=== PATIENT | female | born 1985 | race Caucasian/White ===

== ENCOUNTER 2016-08-09 10:44 | Emergency (ER) | payer OTHER ==
[2016-08-09 10:48] VITALS: BP 148/61; PULSE 95; TEMP 98.4
[2016-08-09 11:23] VITALS: RESP 18
--- NOTE | 2016-08-09 11:37 | XR ---
EXAMINATION TYPE: XR chest 2V DATE OF EXAM: 08/09/2016 11:23 AM COMPARISON: Chest x-ray February 11, 2013. HISTORY: Cough and congestion for a few days. TECHNIQUE: Frontal and lateral views of the chest are obtained. FINDINGS: There is no focal air space opacity, pleural effusion, or pneumothorax seen. The cardiac silhouette size is within normal limits. The osseous structures are intact. IMPRESSION: No acute cardiopulmonary process.
--- NOTE | 2016-08-09 11:43 | ED ---
URI HPI - General Chief Complaint: Upper Respiratory Infection Stated Complaint: Sore throat Time Seen by Provider: 08/09/16 10:56 Source: patient, RN notes reviewed Mode of arrival: ambulatory Limitations: no limitations - History of Present Illness Initial Comments: 31-year-old female presents emergency Department chief complaint upper respiratory cold like symptoms for 4 days. Patient states symptoms progressively getting worse. Patient states she has productive cough. Patient states she's just motor, cough medication with no relief. Patient had a runny nose mild sore throat. Denies any difficulty swallowing. Denies fever, chills. Denies sick contacts. Patient states she does have some ear pressure. Patient has no headache no dizziness. Denies any nausea vomiting diarrhea constipation. - Related Data Home Medications Medication Instructions Recorded Confirmed Naproxen Sodium [Aleve] 440 mg PO BID PRN 08/09/16 08/09/16 Previous Rx's Medication Instructions Recorded Promethaz-Cod 6.25-10 mg/5 ml 5 ml PO Q6HR PRN #120 ml 08/09/16 [Phenergan with Codeine] methylPREDNISolone [Medrol Dose 4 mg PO DIRECTED #1 pack 08/09/16 Pack] Allergies Allergy/AdvReac Type Severity Reaction Status Date / Time No Known Allergies Allergy Verified 08/09/16 10:54 Review of Systems ROS Statement: Those systems with pertinent positive or pertinent negative responses have been documented in the HPI. ROS Other: All systems not noted in ROS Statement are negative. Past Medical History Past Medical History: No Reported History History of Any Multi-Drug Resistant Organisms: None Reported Past Surgical History: No Surgical Hx Reported Past Psychological History: No Psychological Hx Reported Smoking Status: Current every day smoker Past Alcohol Use History: None Reported Past Drug Use History: None Reported General Exam Limitations: no limitations General appearance: alert, in no apparent distress Head exam: Present: atraumatic, normocephalic, normal inspection Eye exam: Present: normal appearance, PERRL, EOMI. Absent: scleral icterus, conjunctival injection, periorbital swelling ENT exam: Present: normal exam, normal oropharynx, mucous membranes moist, TM's normal bilaterally, normal external ear exam Neck exam: Present: normal inspection, full ROM. Absent: tenderness, meningismus, lymphadenopathy Respiratory exam: Present: wheezes (Faint). Absent: normal lung sounds bilaterally, respiratory distress, rales, rhonchi, stridor Cardiovascular Exam: Present: regular rate, normal rhythm, normal heart sounds. Absent: systolic murmur, diastolic murmur, rubs, gallop, clicks Neurological exam: Present: alert, oriented X3, CN II-XII intact Course Vital Signs 08/09/16 08/09/16 10:46 11:23 Temperature 98.4 F Pulse Rate 95 Respiratory 20 18 Rate Blood Pressure 148/61 O2 Sat by Pulse 98 Oximetry Medical Decision Making - Medical Decision Making 31-year-old female presents emergency Department chief complaint cough and cold like symptoms. Patient appears to have upper respiratory infection, bronchitis. Patient be given prednisone at this time and cough syrup. Return parameters were discussed. Disposition Clinical Impression: Bronchitis, Upper respiratory infection Disposition: HOME SELF-CARE Condition: Stable Instructions: Upper Respiratory Infection (ED) Additional Instructions: Please return to the Emergency Department if symptoms worsen or any other concerns. Prescriptions: Promethaz-Cod 6.25-10 mg/5 ml [Phenergan with Codeine] 5 ml PO Q6HR PRN #120 ml PRN Reason: Cough methylPREDNISolone [Medrol Dose Pack] 4 mg PO DIRECTED #1 pack Time of Disposition: 11:43
== END 2016-08-09 12:33 | disposition home or self-care (01) ==
LOC: EC 10:44
DX: J40 Bronchitis, not specified as acute or chronic (principal); J06.9 Acute upper respiratory infection, unspecified; F17.200 Nicotine dependence, unspecified, uncomplicated
CPT/HCPCS: 71020; 99283

== ENCOUNTER 2016-12-30 18:36 | Emergency (ER) | payer OTHER ==
[2016-12-30 18:50] VITALS: TEMP 98.1
[2016-12-30] MEDS ORDERED: SODIUM CHLORIDE 0.9% 1,000 ML IV STA (18:59)
--- NOTE | 2016-12-30 19:03 | ED ---
Chest Pain HPI - General Chief Complaint: Chest Pain Stated Complaint: chest pain/headache Time Seen by Provider: 12/30/16 18:54 Source: patient, RN notes reviewed, old records reviewed Mode of arrival: wheelchair Limitations: no limitations - History of Present Illness Initial Comments: Patient is a 31-year-old female presenting to the complaint of left-sided sharp chest pain for the past 3 days as well as a posterior headache. Patient reports that she's had this constant pain. Denies any aggravating factors. Patient states that seems to radiate into her left armpit. Denies any numbness or tingling. Denies any shortness of breath or diaphoresis. She does have a family history of heart disease and is a smoker. Patient states that she's had no fever or chills. Patient denies any recent fever, chills, shortness of breath , nausea vomiting, numbness or tingling, dysuria or hematuria, constipation or diarrhea, headaches or visual changes, or any other current symptoms - Related Data Home Medications Medication Instructions Recorded Confirmed Phentermine HCl [Adipex-P] 37.5 mg PO QAM 12/30/16 12/30/16 traZODone HCL 200 mg PO HS 12/30/16 12/30/16 Previous Rx's Medication Instructions Recorded Ibuprofen [Motrin] 600 mg PO Q8HR PRN #20 tab 12/30/16 Allergies Allergy/AdvReac Type Severity Reaction Status Date / Time No Known Allergies Allergy Verified 12/30/16 18:54 Review of Systems ROS Statement: Those systems with pertinent positive or pertinent negative responses have been documented in the HPI. ROS Other: All systems not noted in ROS Statement are negative. EKG Findings - EKG Comments: EKG Findings:: EKG shows normal sinus rhythm. Ventricular rate of 85 bpm. MO interval 150 ms. QRS duration 90 ms. QT QTc is 384/456 ms. No evidence of ST elevation or T-wave inversions. No evidence of atrial or ventricular arrhythmias. Past Medical History Past Medical History: No Reported History History of Any Multi-Drug Resistant Organisms: None Reported Past Surgical History: No Surgical Hx Reported Past Psychological History: No Psychological Hx Reported Smoking Status: Current every day smoker Past Alcohol Use History: None Reported Past Drug Use History: None Reported General Exam - General Exam Comments Initial Comments: Well-appearing 31-year-old female. No distress. Limitations: no limitations General appearance: alert, in no apparent distress Head exam: Present: atraumatic, normocephalic, normal inspection Eye exam: Present: normal appearance, PERRL, EOMI. Absent: scleral icterus, conjunctival injection, periorbital swelling ENT exam: Present: normal exam, mucous membranes moist Neck exam: Present: normal inspection. Absent: tenderness, meningismus, lymphadenopathy Respiratory exam: Present: normal lung sounds bilaterally. Absent: respiratory distress, wheezes, rales, rhonchi, stridor Cardiovascular Exam: Present: regular rate, normal rhythm, normal heart sounds, other (patient is tender to palpation over ). Absent: systolic murmur, diastolic murmur, rubs, gallop, clicks GI/Abdominal exam: Present: soft, tenderness (Left upper quadrant tenderness), normal bowel sounds. Absent: distended, guarding, rebound, rigid Extremities exam: Present: normal inspection, full ROM, normal capillary refill. Absent: tenderness, pedal edema, joint swelling, calf tenderness Back exam: Present: normal inspection Neurological exam: Present: alert, oriented X3, CN II-XII intact Psychiatric exam: Present: normal affect, normal mood Skin exam: Present: warm, dry, intact, normal color. Absent: rash Course Vital Signs 12/30/16 12/30/16 12/30/16 18:48 19:04 19:13 Temperature 98.1 F Pulse Rate 88 79 74 Respiratory 20 16 16 Rate Blood Pressure 109/66 115/75 115/75 O2 Sat by Pulse 96 95 98 Oximetry 12/30/16 19:32 Temperature Pulse Rate 62 Respiratory 18 Rate Blood Pressure 113/61 O2 Sat by Pulse 99 Oximetry Chest Pain MDM - MDM 31-year-old female chief complaint of 3 days of left-sided chest pain radiating to her armpit and left upper quadrant. Patient EKG was reviewed to be normal. All lab work is negative. Chest x-ray shows no acute cardiopulmonary process. pain is reproducible to palpation over the chest wall. Discusses likely a strain or possible costochondritis. Patient will be started on anti-inflammatory medication. Patient agrees to follow-up with the primary care provider. Return parameters were discussed. Disposition Clinical Impression: Costochondritis Disposition: HOME SELF-CARE Condition: Good Instructions: Costochondritis (ED) Additional Instructions: Patient advised to apply cool compresses or warm heating pads over the area that is tender. Take anti-inflammatory medication. Follow-up with your primary care provider. Return if there is any worsening signs or symptoms occur. Prescriptions: Ibuprofen [Motrin] 600 mg PO Q8HR PRN #20 tab PRN Reason: Pain Referrals: Jordan Titus MD [Primary Care Provider] - 1-2 days Time of Disposition: 20:29
[2016-12-30 19:27] LABS: Basophils # (A) 0.1 k/uL (0-0.2); Basophils % (A) 1 %; CH 33.6; CHCM 35.7; Eosinophils # (A) 0.4 k/uL (0-0.7); Eosinophils % (A) 4 %; HCT 42.6 % (34.0-46.0); HDW 2.45; Luc # (Auto) 0.14; Luc % (Auto) 2; Lymphocytes # (A) 3.4 k/uL (1.0-4.8); Lymphocytes % (A) 41 %; MCH 33.3 pg (25.0-35.0); MCHC 35.2 g/dL (31.0-37.0); MCV 94.6 fL (80.0-100.0); Mean Platelet Volume 7.1; Monocytes # (A) 0.5 k/uL (0-1.0); Monocytes % (A) 7 %; Neutrophils # (A) 3.8 k/uL (1.3-7.7); Neutrophils % (A) 46 %; RDW 13.5 % (11.5-15.5); WBC 8.2 k/uL (3.8-10.6); WBC (Perox) 7.45
--- NOTE | 2016-12-30 19:33 | XR ---
EXAMINATION TYPE: XR chest 2V DATE OF EXAM: 12/30/2016 COMPARISON: August 09, 2016 HISTORY: Chest pain TECHNIQUE: Frontal and lateral views of the chest are obtained. FINDINGS: There is no focal air space opacity. No evidence for pneumothorax. No pleural effusion. The cardiac silhouette size is within normal limits. The osseous structures are grossly intact. IMPRESSION: 1. No acute cardiopulmonary process.
[2016-12-30 19:39] LABS: ALT 21 U/L (9-52); AST 18 U/L (14-36); Alkaline Phosphatase 88 U/L (38-126); Amylase <30 U/L (30-110); Anion Gap 12 mmol/L; Blood Urea Nitrogen 12 mg/dL (7-17); Calcium 9.1 mg/dL (8.4-10.2); Carbon Dioxide 20 mmol/L (22-30); Chloride 107 mmol/L (98-107); Glucose 119 mg/dL (74-99); INR 0.9 (<1.1); Non-African American GFR(MDRD) >60 (>60 ml/min/1.73 sqM); Potassium 4.2 mmol/L (3.5-5.1); Prothrombin Time 9.6 sec (9.0-12.0); Sodium 139 mmol/L (137-145); Total Bilirubin 0.4 mg/dL (0.2-1.3); Total Protein 6.7 g/dL (6.3-8.2)
[2016-12-30 19:45] LABS: Creatine Kinase 101 U/L (30-135)
[2016-12-30 19:48] VITALS: BP 113/61; PULSE 62; RESP 18
[2016-12-30 19:57] LABS: Creatine Kinase MB 0.3 ng/mL (0.0-2.4); Troponin I <0.012 ng/mL (0.000-0.034)
[2016-12-30] MEDS ORDERED: KETOROLAC 30 MG/ML 1 ML VIAL IVP STA (20:05)
== END 2016-12-30 20:40 | disposition home or self-care (01) ==
LOC: EC 18:36
DX: M94.0 Chondrocostal junction syndrome [Tietze] (principal); F17.200 Nicotine dependence, unspecified, uncomplicated; Z79.899 Other long term (current) drug therapy
CPT/HCPCS: 99285; 96374; 96361; 36415; 93005; 85379; 80053; 82150; 82550; 82553; 83690; 83735; 84484; 85025; 85610; 85730; 71020; J1885

== ENCOUNTER 2017-04-04 19:54 | Emergency (ER) | payer OTHER ==
[2017-04-04 20:07] VITALS: RESP 16
[2017-04-04] MEDS ORDERED: METOCLOPRAMIDE 5 MG/ML 2 ML VIAL IVP STA (20:26)
[2017-04-04] MEDS ORDERED: ACETAMINOPHEN TAB 500 MG TAB PO STA (20:26)
[2017-04-04] MEDS ORDERED: SODIUM CHLORIDE 0.9% 1,000 ML IV STA (20:26)
[2017-04-04] MEDS ORDERED: diphenhydrAMINE 50 MG/ML 1 ML VIAL IVP STA (20:26)
[2017-04-04] MEDS ORDERED: KETOROLAC 30 MG/ML 1 ML VIAL IVP STA (20:26)
[2017-04-04] MEDS ORDERED: ORPHENADRINE 30 MG/ML 2 ML VIAL IVP STA (20:27)
--- NOTE | 2017-04-04 20:37 | ED ---
Headache HPI - General Chief Complaint: Headache Stated Complaint: Headache Time Seen by Provider: 04/04/17 20:09 Source: RN notes reviewed, old records reviewed Mode of arrival: ambulatory Limitations: no limitations - History of Present Illness Initial Comments: 31-year-old female presents emergency room chief complaint of migraine-like headache for the past 3 days. Patient she's had history of migraines before. Patient states that she's had no other symptoms related to that including vision changes or neck pain. She reports that she had no cough sore throat or upper respiratory congestion. Patient reports that her headache is made her feel nauseated. She states that she has not had any vomiting episodes however. Patient states that she's had a history of migraines but has not had one in many months. - Related Data Home Medications Medication Instructions Recorded Confirmed Phentermine HCl [Adipex-P] 37.5 mg PO DAILY 12/30/16 04/04/17 traZODone HCL 200 mg PO HS 12/30/16 04/04/17 Ibuprofen [Motrin] 800 mg PO TID 04/04/17 04/04/17 Previous Rx's Medication Instructions Recorded Ondansetron Odt [Zofran Odt] 4 mg PO Q8HR PRN #12 tab 04/04/17 Allergies Allergy/AdvReac Type Severity Reaction Status Date / Time No Known Allergies Allergy Verified 04/04/17 20:30 Review of Systems ROS Statement: Those systems with pertinent positive or pertinent negative responses have been documented in the HPI. ROS Other: All systems not noted in ROS Statement are negative. Past Medical History Past Medical History: No Reported History History of Any Multi-Drug Resistant Organisms: None Reported Past Surgical History: No Surgical Hx Reported Past Psychological History: No Psychological Hx Reported Smoking Status: Current every day smoker Past Alcohol Use History: None Reported Past Drug Use History: None Reported General Exam - General Exam Comments Initial Comments: Is a pleasant 31-year-old female. No acute distress. Limitations: no limitations General appearance: alert, in no apparent distress Head exam: Present: atraumatic, normocephalic, normal inspection Eye exam: Present: normal appearance, PERRL, EOMI. Absent: scleral icterus, conjunctival injection, periorbital swelling ENT exam: Present: normal exam, mucous membranes moist Neck exam: Present: normal inspection. Absent: tenderness, meningismus, lymphadenopathy Respiratory exam: Present: normal lung sounds bilaterally. Absent: respiratory distress, wheezes, rales, rhonchi, stridor Cardiovascular Exam: Present: regular rate, normal rhythm, normal heart sounds. Absent: systolic murmur, diastolic murmur, rubs, gallop, clicks GI/Abdominal exam: Present: soft, normal bowel sounds. Absent: distended, guarding, rebound, rigid Extremities exam: Present: normal inspection, full ROM, normal capillary refill. Absent: tenderness, pedal edema, joint swelling, calf tenderness Back exam: Present: normal inspection, full ROM, CVA tenderness (R), CVA tenderness (L), muscle spasm Neurological exam: Present: alert, oriented X3, CN II-XII intact Psychiatric exam: Present: normal affect, normal mood Skin exam: Present: warm, dry, intact, normal color. Absent: rash Course Vital Signs 04/04/17 20:04 Temperature 98.7 F Pulse Rate 88 Respiratory 16 Rate Blood Pressure 137/78 O2 Sat by Pulse 98 Oximetry Medical Decision Making - Medical Decision Making Is a 31-year-old female complaining of migraine-like headache. His been going on for 3 days. Patient is neurologically intact. No other symptoms. She did complain of some mild nausea and abdominal discomfort. No tenderness on exam. Patient will receive CBC and BMP. Both are within normal. Urinalysis negative for any signs of infection. Patient was reevaluated after receiving Reglan Toradol Benadryl and Norflex her headache is subsided. She reports is 0 out of 10. At this time I'll discharge the patient with follow-up with her primary care provider. Discussed I will give the patient perception for nausea medicine for further episodes of nausea or migraine. Patient agrees to treatment plan will comply. Return parameters were discussed. - Lab Data Result diagrams: 04/04/17 21:05 04/04/17 21:05 Lab Results 04/04/17 04/04/17 04/04/17 Range/Units 21:05 21:05 21:05 WBC 8.3 (3.8-10.6) k/uL RBC 4.42 (3.80-5.40) m/uL Hgb 14.9 (11.4-16.0) gm/dL Hct 44.5 (34.0-46.0) % MCV 100.8 H (80.0-100.0) fL MCH 33.8 (25.0-35.0) pg MCHC 33.5 (31.0-37.0) g/dL RDW 13.2 (11.5-15.5) % Plt Count 321 (150-450) k/uL Neutrophils % 50 % Lymphocytes % 35 % Monocytes % 7 % Eosinophils % 4 % Basophils % 1 % Neutrophils # 4.2 (1.3-7.7) k/uL Lymphocytes # 2.9 (1.0-4.8) k/uL Monocytes # 0.6 (0-1.0) k/uL Eosinophils # 0.4 (0-0.7) k/uL Basophils # 0.1 (0-0.2) k/uL Sodium 139 (137-145) mmol/L Potassium 4.3 (3.5-5.1) mmol/L Chloride 106 (98-107) mmol/L Carbon Dioxide 21 L (22-30) mmol/L Anion Gap 12 mmol/L BUN 16 (7-17) mg/dL Creatinine 1.11 H (0.52-1.04) mg/dL Est GFR (MDRD) Af Amer >60 (>60 ml/min/1.73 sqM) Est GFR (MDRD) Non-Af 57 (>60 ml/min/1.73 sqM) Glucose 65 L (74-99) mg/dL Calcium 9.1 (8.4-10.2) mg/dL Urine Color Light Yellow Urine Appearance Cloudy H (Clear) Urine pH 7.0 (5.0-8.0) Ur Specific Gordon 1.012 (1.001-1.035) Urine Protein Negative (Negative) Urine Glucose (UA) Negative (Negative) Urine Ketones Negative (Negative) Urine Blood Small H (Negative) Urine Nitrite Negative (Negative) Urine Bilirubin Negative (Negative) Urine Urobilinogen <2.0 (<2.0) mg/dL Ur Leukocyte Esterase Negative (Negative) Urine RBC 1 (0-5) /hpf Urine WBC 2 (0-5) /hpf Ur Squamous Epith Cells 13 H (0-4) /hpf Disposition Clinical Impression: Migraine Disposition: HOME SELF-CARE Condition: Good Instructions: Migraine Headache (ED) Additional Instructions: Patient denies rest, increase fluids. Use nausea medicine as needed. Return take Motrin Tylenol for further headaches. Return to emergency department if any alarming signs symptoms occur. Prescriptions: Ondansetron Odt [Zofran Odt] 4 mg PO Q8HR PRN #12 tab PRN Reason: Nausea Referrals: Jordan Titus MD [Primary Care Provider] - 1-2 days Time of Disposition: 21:46
[2017-04-04 21:20] LABS: Basophils # (A) 0.1 k/uL (0-0.2); Basophils % (A) 1 %; CHCM 33.9; Eosinophils # (A) 0.4 k/uL (0-0.7); Eosinophils % (A) 4 %; HCT 44.5 % (34.0-46.0); HDW 2.48; HGB 14.9 gm/dL (11.4-16.0); Luc # (Auto) 0.16; Luc % (Auto) 2; Lymphocytes # (A) 2.9 k/uL (1.0-4.8); Lymphocytes % (A) 35 %; MCH 33.8 pg (25.0-35.0); MCHC 33.5 g/dL (31.0-37.0); MCV 100.8 fL (80.0-100.0); Mean Platelet Volume 6.9; Monocytes # (A) 0.6 k/uL (0-1.0); Monocytes % (A) 7 %; Neutrophils # (A) 4.2 k/uL (1.3-7.7); Neutrophils % (A) 50 %; RBC 4.42 m/uL (3.80-5.40); RDW 13.2 % (11.5-15.5); WBC 8.3 k/uL (3.8-10.6); WBC (Perox) 8.43
[2017-04-04 21:26] LABS: Appearance,Urine Cloudy (Clear); Bilirubin,Urine Negative (Negative); Glucose,Urine (UA) Negative (Negative); Ketones,Urine Negative (Negative); Leukocyte Esterase,Urine Negative (Negative); Nitrite,Urine Negative (Negative); Particle Count 4075; Protein,Urine Negative (Negative); RBC,Urine 1 /hpf (0-5); Specific Gravity,Urine 1.012 (1.001-1.035); Squamous Epithelial Cell,Urine 13 /hpf (0-4); UA Billing (MACRO vs. MICRO) MICRO; Urobilinogen,Urine <2.0 mg/dL (<2.0); WBC,Urine 2 /hpf (0-5)
[2017-04-04 21:28] LABS: Anion Gap 12 mmol/L; Blood Urea Nitrogen 16 mg/dL (7-17); Calcium 9.1 mg/dL (8.4-10.2); Carbon Dioxide 21 mmol/L (22-30); Chloride 106 mmol/L (98-107); Glucose 65 mg/dL (74-99); Non-African American GFR(MDRD) 57 (>60 ml/min/1.73 sqM); Potassium 4.3 mmol/L (3.5-5.1); Sodium 139 mmol/L (137-145)
[2017-04-04 21:58] VITALS: BP 123/68; PULSE 68; TEMP 98
== END 2017-04-04 21:58 | disposition home or self-care (01) ==
LOC: EC 19:54
DX: G43.909 Migraine, unspecified, not intractable, without status migrainosus (principal); F17.200 Nicotine dependence, unspecified, uncomplicated; Z79.1 Long term (current) use of non-steroidal anti-inflammatories (NSAID); Z79.899 Other long term (current) drug therapy
CPT/HCPCS: 99284 ×2; 96374 ×2; 96375 ×4; 96361 ×2; 36415; 80048; 85025; 81001; J1200; J2360; J2765; J1885

== ENCOUNTER 2018-01-14 17:56 | Emergency (ER) | payer OTHER ==
[2018-01-14 18:03] VITALS: BP 105/64; PULSE 87; RESP 16; TEMP 98.1
[2018-01-14] MEDS ORDERED: LIDOCAINE 4% CREAM 5 GM TUBE TOPICAL ONE (18:53)
--- NOTE | 2018-01-14 18:57 | ED ---
General Adult HPI - General Chief complaint: Skin/Abscess/Foreign Body Stated complaint: leg infection Time Seen by Provider: 01/14/18 18:45 Source: patient, RN notes reviewed Mode of arrival: ambulatory Limitations: no limitations - History of Present Illness Initial comments: Patient is a pleasant 32-year-old female presenting to the emergency department with concerns regarding left leg infection. Patient states she cut her leg while shaving 3 days ago. Patient went to her doctor 2 days ago and was started on antibiotics. Patient has been on antibiotics for almost 2 days now. Patient has continued discomfort. Patient states the swelling may be somewhat worse. No fevers. No other area of infection or concern. Patient has not been using antibiotic ointment. Patient has been taking her oral antibiotics. - Related Data Home Medications Medication Instructions Recorded Confirmed Phentermine HCl [Adipex-P] 37.5 mg PO DAILY 12/30/16 04/04/17 traZODone HCL 200 mg PO HS 12/30/16 04/04/17 Ibuprofen [Motrin] 800 mg PO TID 04/04/17 04/04/17 Previous Rx's Medication Instructions Recorded Ondansetron Odt [Zofran Odt] 4 mg PO Q8HR PRN #12 tab 04/04/17 Mupirocin 2% Oint [Bactroban 2% 1 applic TOPICAL TID #30 gm 01/14/18 Oint] Allergies Allergy/AdvReac Type Severity Reaction Status Date / Time No Known Allergies Allergy Verified 01/14/18 18:03 Review of Systems ROS Statement: Those systems with pertinent positive or pertinent negative responses have been documented in the HPI. ROS Other: All systems not noted in ROS Statement are negative. Constitutional: Denies: fever Eyes: Denies: eye pain ENT: Denies: ear pain Respiratory: Denies: cough Cardiovascular: Denies: chest pain Endocrine: Denies: fatigue Gastrointestinal: Denies: abdominal pain Genitourinary: Denies: dysuria Musculoskeletal: Denies: back pain Skin: Reports: rash Past Medical History Past Medical History: No Reported History History of Any Multi-Drug Resistant Organisms: None Reported Past Surgical History: No Surgical Hx Reported Past Psychological History: No Psychological Hx Reported Smoking Status: Current every day smoker Past Alcohol Use History: Occasional Past Drug Use History: Marijuana General Exam Limitations: no limitations General appearance: alert, in no apparent distress Head exam: Present: normocephalic Respiratory exam: Present: normal lung sounds bilaterally Cardiovascular Exam: Present: regular rate, normal rhythm GI/Abdominal exam: Present: soft. Absent: tenderness Extremities exam: Present: other (Left lateral lower leg with deep abrasion approximately 0.4 x 2.5 cm. There is surrounding mild erythema. There is minimal swelling. There is tenderness.). Absent: calf tenderness Neurological exam: Present: alert Psychiatric exam: Present: normal affect, normal mood Skin exam: Present: abrasion Course Vital Signs 01/14/18 17:58 Temperature 98.1 F Pulse Rate 87 Respiratory 16 Rate Blood Pressure 105/64 O2 Sat by Pulse 98 Oximetry Disposition Clinical Impression: Cellulitis of left ankle Disposition: HOME SELF-CARE Condition: Stable Instructions: Cellulitis (ED) Additional Instructions: Continue antibiotics as prescribed. Twice daily wash area thoroughly with soap and water, applying mupirocin ointment, and bandage. Return for fevers, increased redness, increased pain, increased swelling, worsening symptoms or any other concerns. Please follow-up with primary care physician this week for recheck. Prescriptions: Mupirocin 2% Oint [Bactroban 2% Oint] 1 applic TOPICAL TID #30 gm Is patient prescribed a controlled substance at d/c from ED?: No Referrals: Jordan Titus MD [Primary Care Provider] - 1-2 days Time of Disposition: 18:57
[2018-01-14] MEDS ORDERED: MUPIROCIN 2% OINT 22 GM TUBE TOPICAL SCH (19:00)
== END 2018-01-14 19:14 | disposition home or self-care (01) ==
LOC: EC 17:56
DX: L03.116 Cellulitis of left lower limb (principal); S80.812D Abrasion, left lower leg, subsequent encounter; F17.200 Nicotine dependence, unspecified, uncomplicated; Z79.1 Long term (current) use of non-steroidal anti-inflammatories (NSAID); Z79.899 Other long term (current) drug therapy; W26.9XXD Contact with unspecified sharp object(s), subsequent encounter
CPT/HCPCS: 99283

== ENCOUNTER 2019-07-30 19:38 | Emergency (ER) | payer OTHER ==
[2019-07-30] MEDS ORDERED: LIDOCAINE 1% INJ 10MG/ML (20 ML MDV) SQ STA (20:00)
[2019-07-30] MEDS ORDERED: ACETAMINOPHEN TAB 325 MG TAB PO STA (20:00)
--- NOTE | 2019-07-30 20:27 | XR ---
PROCEDURE: XR toes RT - 3V DATE AND TIME: 07/30/2019 8:15 PM CLINICAL INDICATION: PHH; laceration r/o fb TECHNIQUE: Department protocol COMPARISON: None FINDINGS: There is no fracture or malalignment. There is a geographic cluster of multifocal radiopaque foreign bodies each measuring 2-5 mm. Geographic cluster of radiopaque foreign bodies measures 10 mm AP x 8 mm transverse x 4 mm CC, and is located in the soft tissues immediately plantar to the midshaft of the proximal phalanx of the great toe. These are best seen on the lateral view. IMPRESSION: POSITIVE FOR RADIOPAQUE FOREIGN BODIES.
[2019-07-30] MEDS ORDERED: CEPHALEXIN 500 MG CAP PO STA (20:37)
[2019-07-30] MEDS ORDERED: CEPHALEXIN 500MG STARTER PACK 4 CAP BTL PO STA (20:37)
--- NOTE | 2019-07-30 21:57 | XR ---
PROCEDURE: XR toes LT - 3V DATE AND TIME: 07/30/2019 9:49 PM CLINICAL INDICATION: PHH; toe foreign body TECHNIQUE: Department protocol COMPARISON: None FINDINGS: There is redemonstration of the geographic cluster of multifocal radiopaque foreign bodies each measuring 2-5 mm., With the cluster itself measuring approximately 10 mm AP x 8 mm transverse x 4 mm CC and located in the soft tissues immediately plantar to the midshaft of the proximal phalanx o f the great toe. Bones and joints are intact. IMPRESSION: Radiopaque foreign bodies.
--- NOTE | 2019-07-30 22:31 | ED ---
General Adult HPI - General Chief complaint: Wound/Laceration Stated complaint: toe lac Time Seen by Provider: 07/30/19 19:47 Source: patient, RN notes reviewed, old records reviewed Mode of arrival: wheelchair Limitations: no limitations - History of Present Illness Initial comments: 34-year-old female patient no pertinent past medical history presents ED if she complaint laceration to left great toe. Patient was that she was exiting a bathtub today when she stepped on a drinking glass causing a laceration. Denies any other injury. Reports that tetanus is up-to-date. Systemic: Pt denies fatigue, fever/chills, rash. Pt denies weakness, night sweats, weight loss. Neuro: Pt denies headache, visual disturbances, syncope or pre-syncope. HEENT: Pt denies ocular discharge or irritation, otalgia, rhinorrhea, pharyngitis or notable lymphadenopathy. Cardiopulmonary: Pt denies chest pain, SOB, heart palpitations, dyspnea on exertion. Abdominal/GI: Pt denies abdominal pain, n/v/d. : Pt denies dysuria, burning w/ urination, frequency/urgency. Denies new onset urinary or bowel incontinence. MSK: Pt denies myalgia, loss of strength or function in extremities. Neuro: Pt denies new onset weakness, paresthesias. - Related Data Home Medications Medication Instructions Recorded Confirmed Phentermine HCl [Adipex-P] 37.5 mg PO DAILY 12/30/16 01/14/18 traZODone HCL 200 mg PO HS 12/30/16 01/14/18 Ibuprofen [Motrin] 800 mg PO TID 04/04/17 01/14/18 Cephalexin [Keflex] 500 mg PO BID 01/14/18 01/14/18 Sulfamethox-Tmp 800-160Mg [Bactrim 1 tab PO BID 01/14/18 01/14/18 DS 800-160 mg] rOPINIRole HCL [Requip] 1 mg PO HS 01/14/18 01/14/18 Previous Rx's Medication Instructions Recorded Mupirocin 2% Oint [Bactroban 2% 1 applic TOPICAL TID #30 gm 01/14/18 Oint] Cephalexin [Keflex] 500 mg PO Q12HR 7 Days #14 cap 07/30/19 Allergies Allergy/AdvReac Type Severity Reaction Status Date / Time No Known Allergies Allergy Verified 07/30/19 19:43 Review of Systems ROS Statement: Those systems with pertinent positive or pertinent negative responses have been documented in the HPI. ROS Other: All systems not noted in ROS Statement are negative. Past Medical History Past Medical History: No Reported History History of Any Multi-Drug Resistant Organisms: None Reported Past Surgical History: Ear Surgery, Tonsillectomy Past Psychological History: No Psychological Hx Reported Smoking Status: Current every day smoker Past Alcohol Use History: Occasional Past Drug Use History: Marijuana General Exam - General Exam Comments Initial Comments: Constitutional: NAD, AOX3, Pt has pleasant affect. HEENT: NC/AT, trachea midline, neck supple, no lymphadenopathy. Posterior pharynx non erythematous, without exudates. External ears appear normal, without discharge. Mucous membranes moist. Eyes PERRLA, EOM intact. There is no scleral icterus. No pallor noted. Cardiopulmonary: RRR, no murmurs, rubs or gallops, no JVD noted. Lungs CTAB in anterior and posterior wong. No peripheral edema. Abdominal exam: Abdomen soft and non-distended. Abdomen non-tender to palpation in all 4 quadrants. Bowel sounds active in LLQ. No hepatosplenomegaly. No ecchymosis Neuro: CN II-XII grossly intact. No nuchal rigidity. No raccon eyes, no webb sign, no hemotympanum. No cervical spinal tenderness. MSK: 3 cm laceration on plantar aspect of left great toe. Vigorously irrigated with 1 L of normal saline. Loosely approximated with 4 simple interrupted sutures. No posterior calf tenderness bilaterally, homans sign negative bilaterally. Posterior tibialis and radial pulse +2 bilaterally. Sensation intact in upper and lower extremities. Full active ROM in upper and lower extremities, 5/5 stregnth. Limitations: no limitations Course Vital Signs 07/30/19 19:40 Temperature 98.3 F Pulse Rate 113 H Respiratory 20 Rate Blood Pressure 131/81 O2 Sat by Pulse 99 Oximetry Procedures - Laceration Laceration #1 Consent Obtained: verbal consent Indication: laceration Site: foot, other (L great toe ) Size (cm): 3 Description: linear Depth: simple, single layer Anesthetic Used: lidocaine 1% Anesthesia Technique: local infiltration Amount (mls): 4 Pre-repair: wound explored, irrigated extensively, deep structures intact Type of Sutures: nylon Size of Sutures: 5-0 (loosely approximated) Number of Sutures: 4 Technique: simple, interrupted Patient Tolerated Procedure: well, no complications Medical Decision Making - Medical Decision Making 34-year-old female patient no pertinent past medical history presents ED if she complaint laceration to left great toe. Patient was that she was exiting a bathtub today when she stepped on a drinking glass causing a laceration. Denies any other injury. Reports that tetanus is up-to-date. Patient will signs nurse's with mild tachycardia likely secondary to pain. Within acceptable limits. Physical exam displayed: 3 cm laceration on plantar aspect of left great toe. Vigorously irrigated with 1 L of normal saline. Loosely approximated with 4 simple interrupted sutures. Plain film displayed radiopaque foreign bodies. Multiple attempts to remove foreign bodies. Vigorous irrigation. Wound exploration by myself and Dr. Cabral were unsuccessful. Patient will be discharged for follow-up with primary care provider will be discharged with Keflex. Case discussed with Dr. Cabral. Disposition Clinical Impression: Laceration Disposition: HOME SELF-CARE Condition: Stable Instructions (If sedation given, give patient instructions): Laceration (ED), Soft Tissue Foreign Body (ED) Additional Instructions: Follow up with primary care provider tomorrow. Take antibiotics as directed. Monitor for infection. Return to ER if condition worsens in any way. Please return for suture removal: Hand: 7-10 days Face: 5 days Chest/abdomen: 12-14 days Extremities: 7-10 days Scalp: 7 days Eyebrow: 5-7 days Foot/sole: 12-14 days Please monitor for signs and symptoms of infection including: redness, warmth, drainage, discharge. Please return to ED if these signs or symptoms occur, new signs or symptoms develop or if condition worsens in anyway. Prescriptions: Cephalexin [Keflex] 500 mg PO Q12HR 7 Days #14 cap Is patient prescribed a controlled substance at d/c from ED?: No Referrals: Jordan Titus MD [Primary Care Provider] - 1-2 days
[2019-07-30 22:49] VITALS: BP 140/80; PULSE 84; RESP 18; TEMP 98.2
== END 2019-07-30 22:49 | disposition home or self-care (01) ==
LOC: EC 19:38
DX: S91.112A Laceration without foreign body of left great toe without damage to nail, initial encounter (principal); R00.0 Tachycardia, unspecified; F17.200 Nicotine dependence, unspecified, uncomplicated; Z79.1 Long term (current) use of non-steroidal anti-inflammatories (NSAID); W25.XXXA Contact with sharp glass, initial encounter; Y93.89 Activity, other specified; Y92.002 Bathroom of unspecified non-institutional (private) residence as the place of occurrence of the external cause
CPT/HCPCS: 73660; 99283; 12002; J2001

== ENCOUNTER 2021-08-08 12:11 | Emergency (ER) | payer OTHER ==
[2021-08-08 12:27] VITALS: RESP 18
[2021-08-08] MEDS ORDERED: SODIUM CHLORIDE 0.9% 1,000 ML IV STA (13:46)
[2021-08-08] MEDS ORDERED: MORPHINE SULFATE 4 MG/ML SYRINGE IV STA (13:46)
[2021-08-08 14:28] LABS: Basophils # (A) 0.1 k/uL (0-0.2); Basophils % (A) 1 %; Eosinophils # (A) 0.7 k/uL (0-0.7); Eosinophils % (A) 8 %; HCT 47.2 % (34.0-46.0); HGB 15.8 gm/dL (11.4-16.0); Lymphocytes # (A) 2.4 k/uL (1.0-4.8); Lymphocytes % (A) 26 %; MCHC 33.5 g/dL (31.0-37.0); MCV 98.4 fL (80.0-100.0); Mean Platelet Volume 7.4; Monocytes # (A) 0.6 k/uL (0-1.0); Monocytes % (A) 6 %; Neutrophils # (A) 5.4 k/uL (1.3-7.7); Neutrophils % (A) 58 %; Platelet Count 306 k/uL (150-450); RDW 13.1 % (11.5-15.5); WBC 9.3 k/uL (3.8-10.6)
[2021-08-08 14:39] LABS: ALT 15 U/L (4-34); AST 25 U/L (14-36); African American GFR (CKD) >90 (>60 ml/min/1.73 sqM); Albumin 4.5 g/dL (3.5-5.0); Alkaline Phosphatase 93 U/L (38-126); Amylase 37 U/L (30-110); Anion Gap 11 mmol/L; Blood Urea Nitrogen 17 mg/dL (7-17); Calcium 9.3 mg/dL (8.4-10.2); Carbon Dioxide 22 mmol/L (22-30); Chloride 104 mmol/L (98-107); Glucose 94 mg/dL (74-99); Lipase 45 U/L (23-300); Non-African American GFR(CKD) 83 (>60 ml/min/1.73 sqM); Potassium 4.6 mmol/L (3.5-5.1); Sodium 137 mmol/L (137-145); Total Bilirubin 0.7 mg/dL (0.2-1.3); Total Protein 7.5 g/dL (6.3-8.2)
[2021-08-08 14:51] LABS: Appearance,Urine Cloudy (Clear); Bacteria,Urine Rare /hpf; Bilirubin,Urine Negative (Negative); Blood,Urine Small (Negative); Color,Urine Yellow; Glucose,Urine (UA) Negative (Negative); Ketones,Urine Negative (Negative); Leukocyte Esterase,Urine Small (Negative); Mucus,Urine Rare /hpf; Nitrite,Urine Negative (Negative); Protein,Urine Negative (Negative); RBC,Urine 4 /hpf (0-5); Specific Gravity,Urine 1.021 (1.001-1.035); Squamous Epithelial Cell,Urine 14 /hpf (0-4); Urobilinogen,Urine <2.0 mg/dL (<2.0); WBC,Urine 7 /hpf (0-5)
--- NOTE | 2021-08-08 15:01 | ED ---
General Adult HPI - General Chief complaint: Abdominal Pain Stated complaint: Abdominal Pain Time Seen by Provider: 08/08/21 12:36 Source: patient Mode of arrival: ambulatory Limitations: no limitations - History of Present Illness Initial comments: 36-year-old female presents to the emergency room for a chief complaint of abdominal pain. Patient states that last night she started to get abdominal pain. States it is across her whole abdomen. Patient states she vomited twice and there was some reddened this. Patient denies any diarrhea. Denies any fevers.Patient has no other complaints at this time including shortness of breath, chest pain, nausea or vomiting, headache, or visual changes. - Related Data Previous Rx's Medication Instructions Recorded Dicyclomine [Bentyl] 20 mg PO TID PRN #20 tablet 08/08/21 Allergies Allergy/AdvReac Type Severity Reaction Status Date / Time No Known Allergies Allergy Verified 08/08/21 13:31 Review of Systems ROS Statement: Those systems with pertinent positive or pertinent negative responses have been documented in the HPI. ROS Other: All systems not noted in ROS Statement are negative. Past Medical History Past Medical History: No Reported History History of Any Multi-Drug Resistant Organisms: None Reported Past Surgical History: Ear Surgery, Tonsillectomy Past Psychological History: Anxiety Smoking Status: Current every day smoker Past Alcohol Use History: Occasional Past Drug Use History: Marijuana General Exam Limitations: no limitations General appearance: alert, in no apparent distress Head exam: Present: atraumatic Eye exam: Present: normal appearance, PERRL, EOMI. Absent: scleral icterus, conjunctival injection, nystagmus ENT exam: Present: normal exam, mucous membranes moist Neck exam: Present: normal inspection, full ROM. Absent: tenderness Respiratory exam: Present: normal lung sounds bilaterally. Absent: respiratory distress, wheezes Cardiovascular Exam: Present: regular rate, normal rhythm, normal heart sounds GI/Abdominal exam: Present: soft, tenderness (generalized abdominal tenderness), normal bowel sounds. Absent: distended, guarding, rebound Neurological exam: Present: alert Course Vital Signs 08/08/21 12:23 Temperature 98.3 F Pulse Rate 73 Respiratory 18 Rate Blood Pressure 126/83 O2 Sat by Pulse 98 Oximetry Medical Decision Making - Medical Decision Making Vitals are stable. Patient well-appearing. She has mild generalized abdominal tenderness. No guarding or rebound. CBC is unremarkable. White blood cell count is 9.3. CMP is normal. Amylase and lipase are within normal limits. Urinalysis is contaminated by squamous cells, unconcerning at this time. CT abdomen and pelvis with contrast shows no bowel obstruction. No significant acute finding is seen to account for patient's clinical symptoms unsteady. Cat ent reevaluated after pain medication, feeling much better. Patient has a nontender abdomen at this time. Patient is actually requesting discharge stating she is hungry and wants to go eat. At this time patient will be discharged home with Bentyl and will return here for any worsening symptoms. - Lab Data Result diagrams: 08/08/21 13:56 08/08/21 13:56 Lab Results 08/08/21 08/08/21 08/08/21 Range/Units 13:56 13:56 13:56 WBC 9.3 (3.8-10.6) k/uL RBC 4.80 (3.80-5.40) m/uL Hgb 15.8 (11.4-16.0) gm/dL Hct 47.2 H (34.0-46.0) % MCV 98.4 (80.0-100.0) fL MCH 33.0 (25.0-35.0) pg MCHC 33.5 (31.0-37.0) g/dL RDW 13.1 (11.5-15.5) % Plt Count 306 (150-450) k/uL MPV 7.4 Neutrophils % 58 % Lymphocytes % 26 % Monocytes % 6 % Eosinophils % 8 % Basophils % 1 % Neutrophils # 5.4 (1.3-7.7) k/uL Lymphocytes # 2.4 (1.0-4.8) k/uL Monocytes # 0.6 (0-1.0) k/uL Eosinophils # 0.7 (0-0.7) k/uL Basophils # 0.1 (0-0.2) k/uL Sodium 137 (137-145) mmol/L Potassium 4.6 (3.5-5.1) mmol/L Chloride 104 (98-107) mmol/L Carbon Dioxide 22 (22-30) mmol/L Anion Gap 11 mmol/L BUN 17 (7-17) mg/dL Creatinine 0.90 (0.52-1.04) mg/dL Est GFR (CKD-EPI)AfAm >90 (>60 ml/min/1.73 sqM) Est GFR (CKD-EPI)NonAf 83 (>60 ml/min/1.73 sqM) Glucose 94 (74-99) mg/dL Plasma Lactic Acid Kory (0.7-2.0) mmol/L Calcium 9.3 (8.4-10.2) mg/dL Total Bilirubin 0.7 (0.2-1.3) mg/dL AST 25 (14-36) U/L ALT 15 (4-34) U/L Alkaline Phosphatase 93 (38-126) U/L Total Protein 7.5 (6.3-8.2) g/dL Albumin 4.5 (3.5-5.0) g/dL Amylase 37 (30-110) U/L Lipase 45 (23-300) U/L Urine Color Yellow Urine Appearance Cloudy H (Clear) Urine pH 7.0 (5.0-8.0) Ur Specific Bartlett 1.021 (1.001-1.035) Urine Protein Negative (Negative) Urine Glucose (UA) Negative (Negative) Urine Ketones Negative (Negative) Urine Blood Small H (Negative) Urine Nitrite Negative (Negative) Urine Bilirubin Negative (Negative) Urine Urobilinogen <2.0 (<2.0) mg/dL Ur Leukocyte Esterase Small H (Negative) Urine RBC 4 (0-5) /hpf Urine WBC 7 H (0-5) /hpf Ur Squamous Epith Cells 14 H (0-4) /hpf Urine Bacteria Rare H (None) /hpf Urine Mucus Rare H (None) /hpf Urine HCG, Qual (Not Detectd) 08/08/21 08/08/21 Range/Units 13:56 13:56 WBC (3.8-10.6) k/uL RBC (3.80-5.40) m/uL Hgb (11.4-16.0) gm/dL Hct (34.0-46.0) % MCV (80.0-100.0) fL MCH (25.0-35.0) pg MCHC (31.0-37.0) g/dL RDW (11.5-15.5) % Plt Count (150-450) k/uL MPV Neutrophils % % Lymphocytes % % Monocytes % % Eosinophils % % Basophils % % Neutrophils # (1.3-7.7) k/uL Lymphocytes # (1.0-4.8) k/uL Monocytes # (0-1.0) k/uL Eosinophils # (0-0.7) k/uL Basophils # (0-0.2) k/uL Sodium (137-145) mmol/L Potassium (3.5-5.1) mmol/L Chloride (98-107) mmol/L Carbon Dioxide (22-30) mmol/L Anion Gap mmol/L BUN (7-17) mg/dL Creatinine (0.52-1.04) mg/dL Est GFR (CKD-EPI)AfAm (>60 ml/min/1.73 sqM) Est GFR (CKD-EPI)NonAf (>60 ml/min/1.73 sqM) Glucose (74-99) mg/dL Plasma Lactic Acid Kory 1.8 (0.7-2.0) mmol/L Calcium (8.4-10.2) mg/dL Total Bilirubin (0.2-1.3) mg/dL AST (14-36) U/L ALT (4-34) U/L Alkaline Phosphatase (38-126) U/L Total Protein (6.3-8.2) g/dL Albumin (3.5-5.0) g/dL Amylase (30-110) U/L Lipase (23-300) U/L Urine Color Urine Appearance (Clear) Urine pH (5.0-8.0) Ur Specific Bartlett (1.001-1.035) Urine Protein (Negative) Urine Glucose (UA) (Negative) Urine Ketones (Negative) Urine Blood (Negative) Urine Nitrite (Negative) Urine Bilirubin (Negative) Urine Urobilinogen (<2.0) mg/dL Ur Leukocyte Esterase (Negative) Urine RBC (0-5) /hpf Urine WBC (0-5) /hpf Ur Squamous Epith Cells (0-4) /hpf Urine Bacteria (None) /hpf Urine Mucus (None) /hpf Urine HCG, Qual Not Detected (Not Detectd) Disposition Clinical Impression: Abdominal pain Disposition: HOME SELF-CARE Condition: Good Instructions (If sedation given, give patient instructions): Abdominal Pain (ED) Additional Instructions: Please follow up with your doctor in one to 2 days. Return to the emergency room for any worsening symptoms. Prescriptions: Dicyclomine [Bentyl] 20 mg PO TID PRN #20 tablet PRN Reason: abdominal pain Is patient prescribed a controlled substance at d/c from ED?: No Referrals: Adilene Sharma MD [STAFF PHYSICIAN] - 1-2 days Renae Avery MD [STAFF PHYSICIAN] - 1-2 days Time of Disposition: 15:52
--- NOTE | 2021-08-08 15:33 | CT ---
EXAMINATION TYPE: CT abdomen pelvis w con DATE OF EXAM: 08/08/2021 HISTORY: Generalized abdominal pain. CT DLP: 2670.4mGycm Automated Exposure Control for Dose Reduction was Utilized. CONTRAST: CT scan of the abdomen and pelvis is performed with IV Contrast, patient injected with 100 mL of Isov ue 300. COMPARISON: None. FINDINGS: LUNG BASES: Dependent atelectasis bilateral bases. LIVER/GB: Peripheral 4.7 x 3.2 cm hypodense lesion right hepatic lobe shows peripheral nodular enhanc ement with some centripetal filling on delayed images. Findings are consistent with hemangioma. Liver is heterogeneously hypodense relative to spleen suggesting underlying diffuse fatty infiltration. PANCREAS: No significant abnormality is seen. SPLEEN: No significant abnormality is seen. ADRENALS: No significant abnormality is seen. KIDNEYS: No significant abnormality is seen. BOWEL: Suboptimal evaluation of bowel without enteric contrast. Fecal material in the terminal ileum noted. No suspicious small or large bowel dilatation is seen. Findings consistent with delayed passag e of ingested material to colonic level given lack of small bowel dilatation. Normal-size appendix fr om cecum UTERUS/ADNEXA: Anteverted uterus. Symmetric normal-size ovaries. LYMPH NODES: No greater than 1cm abdominal or pelvic lymph nodes are appreciated. OSSEOUS STRUCTURES: Moderate to severe disc space narrowing L4-L5 level with vacuum disc phenomenon. Facet arthropathy lower lumbar levels. OTHER: No significant additional abnormality is seen. IMPRESSION: No bowel obstruction. No significant acute finding is seen to account for patient's clini muriel symptoms on this study.
[2021-08-08 16:22] VITALS: BP 131/94; PULSE 66; TEMP 98.8
== END 2021-08-08 16:20 | disposition home or self-care (01) ==
LOC: EC 12:11
DX: R10.84 Generalized abdominal pain (principal); F17.200 Nicotine dependence, unspecified, uncomplicated; F12.90 Cannabis use, unspecified, uncomplicated; F41.9 Anxiety disorder, unspecified; Z79.899 Other long term (current) drug therapy
CPT/HCPCS: 36415; 80053; 82150; 83605; 83690; 85025; 81001; 81025; 74177; 99284; 96374; 96361; J2270; Q9967

== ENCOUNTER 2022-01-21 21:09 | Emergency (ER) | payer OTHER ==
[2022-01-21 21:16] VITALS: TEMP 98.2
--- NOTE | 2022-01-21 21:21 | ED ---
General Adult HPI - General Chief complaint: Dizziness Stated complaint: Dizziness,headache Time Seen by Provider: 01/21/22 21:20 Source: patient Mode of arrival: ambulatory Limitations: no limitations - History of Present Illness Initial comments: Patient presents to the ED complaining of having a diffuse headache and dizziness since yesterday. Patient states that she has a history of headaches, but her current headache seems different. Patient also states "I just don't feel well". Patient admits to having a cough as well. Patient denies trauma or injury, sudden onset of headache, LOC, neck pain or stiffness, fever or chills, focal numbness/weakness/neuro deficit, visual changes, speech difficulty, chest pain or pressure, dyspnea, hemoptysis, palpitations, syncope, abdominal pain, nausea/vomiting/diarrhea, bloody or melanotic stool, dysuria or urinary symptoms, leg or calf swelling or pain, or any other symptoms or complaints. Patient states that she got a ride to the ED tonight. - Related Data Home Medications Medication Instructions Recorded Confirmed No Known Home Medications 01/21/22 01/21/22 Allergies Allergy/AdvReac Type Severity Reaction Status Date / Time No Known Allergies Allergy Verified 01/21/22 22:11 Review of Systems ROS Statement: Those systems with pertinent positive or pertinent negative responses have been documented in the HPI. ROS Other: All systems not noted in ROS Statement are negative. Past Medical History Past Medical History: No Reported History History of Any Multi-Drug Resistant Organisms: None Reported Past Surgical History: Ear Surgery, Tonsillectomy Past Psychological History: Anxiety Smoking Status: Current every day smoker Past Alcohol Use History: Occasional Past Drug Use History: Marijuana General Exam Limitations: no limitations General appearance: alert, in no apparent distress Head exam: Present: atraumatic, normocephalic Eye exam: Present: normal appearance, PERRL, EOMI. Absent: nystagmus ENT exam: Present: normal oropharynx, mucous membranes moist, TM's normal bilaterally Neck exam: Present: other (Trachea is in midline; no nuchal rigidity or meningeal signs are present on exam). Absent: tenderness, meningismus Respiratory exam: Present: normal lung sounds bilaterally. Absent: respiratory distress, wheezes, rales, rhonchi, stridor Cardiovascular Exam: Present: regular rate, normal rhythm, normal heart sounds, other (Normal radial pulses bilaterally) GI/Abdominal exam: Present: soft. Absent: distended, tenderness, guarding Extremities exam: Absent: tenderness, pedal edema, calf tenderness Neurological exam: Present: alert, oriented X3, CN II-XII intact. Absent: motor sensory deficit Psychiatric exam: Present: normal affect, normal mood Skin exam: Present: warm, dry, intact, normal color Course Vital Signs 01/21/22 21:13 Temperature 98.2 F Pulse Rate 105 H Respiratory 18 Rate Blood Pressure 127/83 O2 Sat by Pulse 98 Oximetry - Reevaluation(s) Reevaluation #1: 01/22/22 00:08 Patient states that her symptoms have improved with ED treatment. Patient remains alert and breathing comfortably. Patient denies development of any new symptoms while in the ED. Patient is aware of her test results, and she feels comfortable being discharged home at this time. Patient was counseled about headaches and dizziness, and she was clearly explained return and follow-up instructions. Patient feels comfortable with this plan. EKG Findings - EKG Comments: EKG Findings:: Normal sinus rhythm, ventricular rate of 96 bpm, no ectopy, normal NH and QRS intervals, normal QT normal, normal axis, no ST or T-wave abnormality Medical Decision Making - Medical Decision Making Other than mildly elevated LFTs, the patient's labs are fairly unremarkable. Patient's EKG and imaging studies are also unremarkable. Patient has no abdominal pain or tenderness on examination. Patient is afebrile and without leukocytosis. I do not suspect an emergent medical condition at this time. Will discharge patient home at this time. Patient feels comfortable with this plan. - Lab Data Result diagrams: 01/21/22 21:58 01/21/22 21:58 Lab Results 01/21/22 01/21/22 01/21/22 Range/Units 21:58 21:58 22:05 WBC 8.8 (3.8-10.6) k/uL RBC 4.78 (3.80-5.40) m/uL Hgb 14.9 (11.4-16.0) gm/dL Hct 45.0 (34.0-46.0) % MCV 94.1 (80.0-100.0) fL MCH 31.1 (25.0-35.0) pg MCHC 33.1 (31.0-37.0) g/dL RDW 13.3 (11.5-15.5) % Plt Count 188 (150-450) k/uL MPV 7.4 Neutrophils % (Manual) 46 % Band Neuts % (Manual) 1 % Lymphocytes % (Manual) 41 % Monocytes % (Manual) 7 % Eosinophils % (Manual) 5 % Neutrophils # (Manual) 4.10 (1.3-7.7) k/uL Lymphocytes # (Manual) 3.61 (1.0-4.8) k/uL Monocytes # (Manual) 0.62 (0-1.0) k/uL Eosinophils # (Manual) 0.44 (0-0.7) k/uL Nucleated RBCs 0 (0-0) /100 WBC Manual Slide Review Performed Reactive Lymphocytes Present Sodium 132 L (137-145) mmol/L Potassium 4.2 (3.5-5.1) mmol/L Chloride 99 (98-107) mmol/L Carbon Dioxide 27 (22-30) mmol/L Anion Gap 6 mmol/L BUN 9 (7-17) mg/dL Creatinine 0.86 (0.52-1.04) mg/dL Est GFR (CKD-EPI)AfAm >90 (>60 ml/min/1.73 sqM) Est GFR (CKD-EPI)NonAf 88 (>60 ml/min/1.73 sqM) Glucose 93 (74-99) mg/dL Calcium 8.6 (8.4-10.2) mg/dL Total Bilirubin 0.4 (0.2-1.3) mg/dL AST 65 H (14-36) U/L ALT 78 H (4-34) U/L Alkaline Phosphatase 139 H (38-126) U/L Total Protein 6.2 L (6.3-8.2) g/dL Albumin 3.4 L (3.5-5.0) g/dL HCG, Qual Not Detected Influenza Type A (PCR) Not Detected (Not Detectd) Influenza Type B (PCR) Not Detected (Not Detectd) RSV (PCR) Not Detected (Not Detectd) SARS-CoV-2 (PCR) Not Detected (Not Detectd) - Radiology Data Chest x-ray: Normal chest. No change. Noncontrast head CT: Normal unenhanced head CT scan. Disposition Clinical Impression: Headache, Dizziness Disposition: HOME SELF-CARE Condition: Stable Instructions (If sedation given, give patient instructions): Acute Headache (ED), Dizziness (ED) Is patient prescribed a controlled substance at d/c from ED?: No Referrals: None,Stated [Primary Care Provider] - 1-2 days Nick Gibbs MD [STAFF PHYSICIAN] - 1-2 days Time of Disposition: 00:10
[2022-01-21] MEDS ORDERED: METOCLOPRAMIDE 5 MG/ML 2 ML VIAL IVP STA (21:31)
[2022-01-21] MEDS ORDERED: diphenhydrAMINE 50 MG/ML 1 ML VIAL IVP STA (21:31)
[2022-01-21] MEDS ORDERED: SODIUM CHLORIDE 0.9% 1,000 ML IV STA (21:31)
[2022-01-21] MEDS ORDERED: MECLIZINE 12.5 MG TAB PO STA (21:33)
[2022-01-21 22:21] LABS: ALT 78 U/L (4-34); AST 65 U/L (14-36); African American GFR (CKD) >90 (>60 ml/min/1.73 sqM); Albumin 3.4 g/dL (3.5-5.0); Alkaline Phosphatase 139 U/L (38-126); Anion Gap 6 mmol/L; Blood Urea Nitrogen 9 mg/dL (7-17); Calcium 8.6 mg/dL (8.4-10.2); Carbon Dioxide 27 mmol/L (22-30); Chloride 99 mmol/L (98-107); Glucose 93 mg/dL (74-99); Non-African American GFR(CKD) 88 (>60 ml/min/1.73 sqM); Potassium 4.2 mmol/L (3.5-5.1); Sodium 132 mmol/L (137-145); Total Bilirubin 0.4 mg/dL (0.2-1.3); Total Protein 6.2 g/dL (6.3-8.2)
[2022-01-21 22:24] LABS: HCG,Qualitative Serum Not Detected
[2022-01-21 22:34] LABS: HGB 14.9 gm/dL (11.4-16.0); MCH 31.1 pg (25.0-35.0); MCHC 33.1 g/dL (31.0-37.0); MCV 94.1 fL (80.0-100.0); Mean Platelet Volume 7.4; Platelet Count 188 k/uL (150-450); RBC 4.78 m/uL (3.80-5.40); RDW 13.3 % (11.5-15.5); WBC 8.8 k/uL (3.8-10.6)
--- NOTE | 2022-01-21 23:01 | XR ---
EXAMINATION TYPE: XR chest 2V DATE OF EXAM: 01/21/2022 COMPARISON: December 30, 2016 HISTORY: Cough TECHNIQUE: 2 views FINDINGS: Heart and mediastinum are normal. Lungs are clear. Diaphragm is normal. Bony thorax is inta ct. IMPRESSION: Normal chest. No change.
--- NOTE | 2022-01-21 23:06 | CT ---
EXAMINATION TYPE: CT brain wo con DATE OF EXAM: 01/21/2022 COMPARISON: None HISTORY: dizzy CT DLP: 1090.1 mGycm Automated exposure control for dose reduction was used. Ventricles and sulci appear normal. There is no mass effect or midline shift. No sign of intracranial hemorrhage. No evidence of cerebral edema. The calvarium is intact. Skull base is intact. IMPRESSION: Normal unenhanced head CT scan
[2022-01-21 23:26] LABS: Nucleated Red Blood Cells 0 /100 WBC (0-0)
[2022-01-21 23:28] LABS: Band Neutrophils % 1 %; Eosinophils # (M) 0.44 k/uL (0-0.7); Lymphocytes # (M) 3.61 k/uL (1.0-4.8); Monocytes # (M) 0.62 k/uL (0-1.0); Neutrophils % (M) 46 %; Reactive Lymphocytes Present; Total Cells Counted 100
[2022-01-22 00:57] VITALS: BP 111/56; PULSE 94; RESP 16
== END 2022-01-22 00:57 | disposition home or self-care (01) ==
LOC: EC 21:09
DX: R42 Dizziness and giddiness (principal); R51.9 Headache, unspecified; F17.200 Nicotine dependence, unspecified, uncomplicated; Z20.822 Contact with and (suspected) exposure to COVID-19
CPT/HCPCS: 36415; 93005; 80053; 85025; 84703; 87636; 71046; 70450; 99284; 96374; 96375; 96361; J1200; J2765

== ENCOUNTER 2022-01-30 03:06 | Emergency (ER) | payer OTHER ==
[2022-01-30 03:13] VITALS: RESP 16; TEMP 98.1
[2022-01-30] MEDS ORDERED: KETOROLAC 15 MG/ML 1 ML VIAL IVP STA (03:24)
[2022-01-30] MEDS ORDERED: SODIUM CHLORIDE 0.9% 1,000 ML IV STA ×2 (03:24)
[2022-01-30] MEDS ORDERED: PROCHLORPERAZINE INJ 10 MG/2 ML VIAL IVP STA (03:25)
[2022-01-30] MEDS ORDERED: diphenhydrAMINE 50 MG/ML 1 ML VIAL IVP STA (03:25)
--- NOTE | 2022-01-30 03:25 | ED ---
Headache HPI - General Chief Complaint: Headache Stated Complaint: Headache, Dizziness Time Seen by Provider: 01/30/22 03:23 Mode of arrival: ambulatory Limitations: no limitations - Related Data Previous Rx's Medication Instructions Recorded Meclizine [Antivert] 25 mg PO BID #60 tab 01/30/22 Nitrofurantoin Monohyd/M-Cryst 100 mg PO Q12HR #14 cap 01/30/22 [Macrobid] Allergies Allergy/AdvReac Type Severity Reaction Status Date / Time No Known Allergies Allergy Verified 01/30/22 03:07 Review of Systems ROS Statement: Those systems with pertinent positive or pertinent negative responses have been documented in the HPI. ROS Other: All systems not noted in ROS Statement are negative. 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 History of Any Multi-Drug Resistant Organisms: None Reported Past Surgical History: Ear Surgery, Tonsillectomy Past Psychological History: Anxiety Smoking Status: Current every day smoker Past Alcohol Use History: None Reported, Occasional Past Drug Use History: Marijuana General Exam Limitations: no limitations Course Vital Signs 01/30/22 03:07 Temperature 98.1 F Pulse Rate 114 H Respiratory 16 Rate Blood Pressure 122/81 O2 Sat by Pulse 96 Oximetry Medical Decision Making - Lab Data Result diagrams: 01/30/22 03:51 01/30/22 03:51 Lab Results 01/30/22 01/30/22 01/30/22 Range/Units 03:51 03:51 03:51 WBC 15.4 H (3.8-10.6) k/uL RBC 4.65 (3.80-5.40) m/uL Hgb 14.4 (11.4-16.0) gm/dL Hct 44.0 (34.0-46.0) % MCV 94.6 (80.0-100.0) fL MCH 31.0 (25.0-35.0) pg MCHC 32.8 (31.0-37.0) g/dL RDW 14.1 (11.5-15.5) % Plt Count 263 (150-450) k/uL MPV 7.3 Neutrophils % 35 % Lymphocytes % 52 % Monocytes % 7 % Eosinophils % 1 % Basophils % 1 % Neutrophils # 5.3 (1.3-7.7) k/uL Lymphocytes # 8.1 H (1.0-4.8) k/uL Monocytes # 1.0 (0-1.0) k/uL Eosinophils # 0.1 (0-0.7) k/uL Basophils # 0.2 (0-0.2) k/uL Manual Slide Review Performed Sodium 135 L (137-145) mmol/L Potassium 4.2 (3.5-5.1) mmol/L Chloride 106 (98-107) mmol/L Carbon Dioxide 23 (22-30) mmol/L Anion Gap 6 mmol/L BUN 14 (7-17) mg/dL Creatinine 1.09 H (0.52-1.04) mg/dL Est GFR (CKD-EPI)AfAm 76 (>60 ml/min/1.73 sqM) Est GFR (CKD-EPI)NonAf 66 (>60 ml/min/1.73 sqM) Glucose 111 H (74-99) mg/dL Plasma Lactic Acid Kory 1.0 (0.7-2.0) mmol/L Calcium 8.6 (8.4-10.2) mg/dL Magnesium 2.1 (1.6-2.3) mg/dL Total Bilirubin 0.4 (0.2-1.3) mg/dL AST 85 H (14-36) U/L ALT 138 H (4-34) U/L Alkaline Phosphatase 182 H (38-126) U/L Total Protein 6.8 (6.3-8.2) g/dL Albumin 3.7 (3.5-5.0) g/dL Amylase 37 (30-110) U/L Lipase 44 (23-300) U/L Urine Color Urine Appearance (Clear) Urine pH (5.0-8.0) Ur Specific [place] (1.001-1.035) Urine Protein (Negative) Urine Glucose (UA) (Negative) Urine Ketones (Negative) Urine Blood (Negative) Urine Nitrite (Negative) Urine Bilirubin (Negative) Urine Urobilinogen (<2.0) mg/dL Ur Leukocyte Esterase (Negative) Urine RBC (0-5) /hpf Urine WBC (0-5) /hpf Urine WBC Clumps (None) /hpf Ur Squamous Epith Cells (0-4) /hpf Urine Bacteria (None) /hpf Hyaline Casts (0-2) /lpf Urine Mucus (None) /hpf Urine HCG, Qual (Not Detectd) 01/30/22 01/30/22 Range/Units 03:51 03:51 WBC (3.8-10.6) k/uL RBC (3.80-5.40) m/uL Hgb (11.4-16.0) gm/dL Hct (34.0-46.0) % MCV (80.0-100.0) fL MCH (25.0-35.0) pg MCHC (31.0-37.0) g/dL RDW (11.5-15.5) % Plt Count (150-450) k/uL MPV Neutrophils % % Lymphocytes % % Monocytes % % Eosinophils % % Basophils % % Neutrophils # (1.3-7.7) k/uL Lymphocytes # (1.0-4.8) k/uL Monocytes # (0-1.0) k/uL Eosinophils # (0-0.7) k/uL Basophils # (0-0.2) k/uL Manual Slide Review Sodium (137-145) mmol/L Potassium (3.5-5.1) mmol/L Chloride (98-107) mmol/L Carbon Dioxide (22-30) mmol/L Anion Gap mmol/L BUN (7-17) mg/dL Creatinine (0.52-1.04) mg/dL Est GFR (CKD-EPI)AfAm (>60 ml/min/1.73 sqM) Est GFR (CKD-EPI)NonAf (>60 ml/min/1.73 sqM) Glucose (74-99) mg/dL Plasma Lactic Acid Kory (0.7-2.0) mmol/L Calcium (8.4-10.2) mg/dL Magnesium (1.6-2.3) mg/dL Total Bilirubin (0.2-1.3) mg/dL AST (14-36) U/L ALT (4-34) U/L Alkaline Phosphatase (38-126) U/L Total Protein (6.3-8.2) g/dL Albumin (3.5-5.0) g/dL Amylase (30-110) U/L Lipase (23-300) U/L Urine Color Yellow Urine Appearance Cloudy H (Clear) Urine pH 6.0 (5.0-8.0) Ur Specific [place] 1.023 (1.001-1.035) Urine Protein 1+ H (Negative) Urine Glucose (UA) Negative (Negative) Urine Ketones Negative (Negative) Urine Blood Small H (Negative) Urine Nitrite Negative (Negative) Urine Bilirubin Negative (Negative) Urine Urobilinogen 2.0 (<2.0) mg/dL Ur Leukocyte Esterase Large H (Negative) Urine RBC 7 H (0-5) /hpf Urine WBC 91 H (0-5) /hpf Urine WBC Clumps Rare H (None) /hpf Ur Squamous Epith Cells 3 (0-4) /hpf Urine Bacteria Few H (None) /hpf Hyaline Casts 3 H (0-2) /lpf Urine Mucus Many H (None) /hpf Urine HCG, Qual Not Detected (Not Detectd) Disposition Clinical Impression: Headache, UTI (urinary tract infection) Disposition: HOME SELF-CARE Condition: Good Instructions (If sedation given, give patient instructions): Acute Headache (ED), Urinary Tract Infection in Women (ED) Prescriptions: Meclizine [Antivert] 25 mg PO BID #60 tab Nitrofurantoin Monohyd/M-Cryst [Macrobid] 100 mg PO Q12HR #14 cap Is patient prescribed a controlled substance at d/c from ED?: No Referrals: None,Stated [Primary Care Provider] - 1-2 days
[2022-01-30] MEDS ORDERED: MECLIZINE 12.5 MG TAB PO STA (03:58)
[2022-01-30 04:12] LABS: Basophils # (A) 0.2 k/uL (0-0.2); Basophils % (A) 1 %; Eosinophils # (A) 0.1 k/uL (0-0.7); Eosinophils % (A) 1 %; HGB 14.4 gm/dL (11.4-16.0); Lymphocytes # (A) 8.1 k/uL (1.0-4.8); Lymphocytes % (A) 52 %; MCHC 32.8 g/dL (31.0-37.0); MCV 94.6 fL (80.0-100.0); Mean Platelet Volume 7.3; Monocytes % (A) 7 %; Neutrophils # (A) 5.3 k/uL (1.3-7.7); Neutrophils % (A) 35 %; Platelet Count 263 k/uL (150-450); RBC 4.65 m/uL (3.80-5.40); RDW 14.1 % (11.5-15.5); WBC 15.4 k/uL (3.8-10.6)
[2022-01-30 04:16] LABS: Appearance,Urine Cloudy (Clear); Bacteria,Urine Few /hpf; Bilirubin,Urine Negative (Negative); Blood,Urine Small (Negative); Color,Urine Yellow; Glucose,Urine (UA) Negative (Negative); Hyaline Casts,Urine 3 /lpf (0-2); Ketones,Urine Negative (Negative); Leukocyte Esterase,Urine Large (Negative); Mucus,Urine Many /hpf; Nitrite,Urine Negative (Negative); Protein,Urine 1+ (Negative); RBC,Urine 7 /hpf (0-5); Specific Gravity,Urine 1.023 (1.001-1.035); Squamous Epithelial Cell,Urine 3 /hpf (0-4); WBC,Urine 91 /hpf (0-5)
[2022-01-30 04:26] LABS: Albumin 3.7 g/dL (3.5-5.0); Calcium 8.6 mg/dL (8.4-10.2); Magnesium 2.1 mg/dL (1.6-2.3); Potassium 4.2 mmol/L (3.5-5.1); Total Bilirubin 0.4 mg/dL (0.2-1.3); Total Protein 6.8 g/dL (6.3-8.2)
[2022-01-30 06:22] VITALS: BP 116/93; PULSE 95
== END 2022-01-30 06:22 | disposition home or self-care (01) ==
LOC: EC 03:06
DX: N39.0 Urinary tract infection, site not specified (principal); R51.9 Headache, unspecified; R42 Dizziness and giddiness; F17.200 Nicotine dependence, unspecified, uncomplicated
CPT/HCPCS: 36415; 80053; 82150; 83605; 83690; 83735; 85025; 81001; 81025; 87086; 87077; 87186; 99284; 96374; 96375; 96361; J1200; J0780; J1885